=== PATIENT | male | born 1965 | race Caucasian/White ===

== ENCOUNTER 2019-11-12 13:03 | Emergency (ER) | payer OTHER, MEDICAID ==
[~2019-11-12] VITALS: Ht 175.3 cm; Wt 88.2 kg
[2019-11-12 13:21] VITALS: BP 113/61; Ht 175.3 cm; Wt 88.2 kg
[2019-11-12 14:42] LABS: BASOPHILS 0.3 % (0-2); EOSINOPHILS 2.6 % (0-7); HEMOGLOBIN 17.3 g/dL (13.5-17.5); IMMATURE GRANULOCYTES 0.3 % (0-5); LYMPHOCYTES 17.8 % (15-50); MCH 35.4 pg (26.0-34.0); MCHC 34.6 g/dL (31.0-37.0); MCV 102.2 fL (80.0-100.0); MEAN PLATELET VOLUME 10.9 fL (7.4-10.4); MONOCYTES 11.7 % (2-11); NEUTROPHILS 67.3 % (40-80); PLATELET COUNT 154 10x3/uL (130-400); RBC 4.89 10x6/uL (4.20-6.10); RDW 14.4 % (11.5-14.5); WBC 7.8 10x3/uL (4.8-10.8)
[2019-11-12 14:47] LABS: ANION GAP 9.2 mmol/L (8-16); CALCIUM 7.3 mg/dL (8.5-10.1); CARBON DIOXIDE 30.4 mmol/L (21.0-32.0); CREATININE - SERUM 1.6 mg/dL (0.6-1.3); POTASSIUM - SERUM 3.6 mmol/L (3.5-5.1)
[2019-11-12 14:52] LABS: ALBUMIN 3.1 g/dL (3.4-5.0); BILIRUBIN - TOTAL 0.62 mg/dL (0.2-1.3); PROTEIN - SERUM 6.2 g/dL (6.4-8.2)
[2019-11-12 16:11] LABS: CKMB 3.7 U/L (0.0-3.6); CREATINE KINASE 98 UL (21-232); TROPONIN-I 0.045 ng/mL (0.000-0.060)
== END 2019-11-12 17:01 | disposition home or self-care (01) ==
LOC: D.ER 13:03
PROVIDERS: Family Medicine
DX: I95.9 Hypotension, unspecified (principal); N17.9 Acute kidney failure, unspecified; E86.0 Dehydration; I11.0 Hypertensive heart disease with heart failure; I50.9 Heart failure, unspecified; E11.9 Type 2 diabetes mellitus without complications